=== PATIENT | male | born 1960 | race Caucasian/White ===

== ENCOUNTER → 2019-08-22 | Day surgery (SDC) | payer OTHER ==
--- NOTE | 2019-08-21 13:47 | Pre Op History & Physical ---
DATE OF SURGERY: 08/22/2019 CHIEF COMPLAINT: Lesion in the left mucosal area and the cheek for 1 year. HISTORY OF PRESENT ILLNESS: This 58-year-old male was noted to have a lesion in the left mucosal area for about a year. The patient has no trauma to that diana. He has no swelling in the parotid area. There are no aggravating or relieving symptoms for that problem. The lesion has been persistent and he has been treated with antibiotics, mouthwash with no improvement. The area is quite irritating to the patient. REVIEW OF SYSTEMS: System review showed no recent cardiovascular, respiratory, or GI problem. PAST MEDICAL HISTORY: The patient has a history of hypertension. PAST SURGICAL HISTORY: He has previous surgery to both of his right and left knee and recently sinuplasty. ALLERGIES: HE HAS NO KNOWN ALLERGY TO MEDICATION. MEDICATIONS: He is on: 1. Escitalopram. 2. Tiazac. 3. Simvastatin. 4. Aleve. SOCIAL HISTORY: He smokes cigar and chew tobacco and he drinks about 2-3 times per week. FAMILY HISTORY: Noncontributory. PHYSICAL EXAMINATION: VITAL SIGNS: The patient's vital signs were within normal limits. HEENT: Ear exam showed normal tympanic membranes bilaterally. Nasal exam showed hypertrophy of the inferior turbinates. Oropharynx and oral cavity showed 2+ tonsils bilaterally with Mallampati level 2. Lesion was noted about 1 cm in the left cheek mucosal area anterior to the parotid puncta, which is raised and papular in appearance. NECK: Showed no lymph node or thyroid palpable. CHEST: Showed good air entry bilaterally. CARDIOVASCULAR: Showed S1 and S2. No murmur noted. ASSESSMENT AND PLAN: Mr. 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 The suggested treatment is panendoscopy, excisional biopsy of the lesion with appropriate closure and other necessary procedure. Complication of procedure includes, but not limited to bleeding, infection, wound breakdown, poor cosmetic result, blockage of the parotid duct, parotiditis, dysphagia, odynophagia, persistent recurrence of the problem. Alternatives will be continue observation, excision of lesion in the office setting. The patient has elected to undergo surgical procedure. He has been advised to stop his Aleve at least 7 to 10 days before surgery. MD SOPHIE Bro/ANNA /[id number]
[~2019-08-22] MED LIST: ALEVE220 MG PO; DESFLURANE 240 ML BTL INH ONE; DEXAMETHASONE SOD PHOS INJ 4 MG/ML VIAL ONE; ELAVIL PO; FENTANYL CITRATE/PF 100MCG/2 ML INJ ONE; GLYCOPYRROLATE INJ 1MG/ 5 ML SYR ONE; KETOROLAC TROMETHAMINE 30 MG/ML VIAL ONE; LEXAPRO10 MG PO; LIDOCAINE 1% W/EPINEPHRINE 20 ML VIAL ONE; MIDAZOLAM HCL 2 MG/2 ML VIAL ONE; NEOSTIGMINE 5 MG/5ML SYR ONE; ONDANSETRON HCL INJ 2MG/ML 2ML 2 MG/ML VIAL ONE; PROPOFOL IV EMULSION 10 MG/ML 20 ML VIAL ONE; ROCURONIUM BROMIDE 10 MG/ML 5ML VIAL ONE; SIMVASTATIN20 MG PO; TIAZAC180 MG PO
--- OUTSIDE RECORDS SUMMARY | 2019-08-22 06:59 | XMS REPORT ---
Author Author [facility] Address Unknown Phone Unavailable Care Team Providers Care Adult Literacy Teacher Name Role Phone Ana María Hernandez Unavailable Unavailable RACHAEL, DR POPEYE THOMAS Unavailable Unavailable Problems This patient has no known problems. Allergies, Adverse Reactions, Alerts This patient has no known allergies or adverse reactions. Medications This patient has no known medications. Encounters Start Date/Time End Date/Time Encounter Type Admission Type Attending Clinicians Care Facility Care Department Encounter ID 2018-07-06 15:57:00 2018-08-06 23:59:00 Outpatient [facility] [place] [id number] Results Test Description Test Time Test Comments Text Results Atomic Results Result Comments C Spine Wo Cont 2019-05-03 18:08:00 [place] [id number] [facility] REPORT Name: MYLA LEE Acct Number: [id number] :[id number] Age:58 Sex:M Ord Phys: Ana María Hernandez MANAGER CASINO Unit Number: [id number] [facility] [address]: Status: REG REF RAD Exam Date: 05/03/19 EXAM DESCRIPTION: MRI - C Spine Wo Cont - 05/03/2019 4:29 pm CLINICAL HISTORY: Radiculopathy and neck pain COMPARISON: March 2019 x-ray TECHNIQUE: Magnetic resonance imaging of the cervical spine was obtained with coronal and sagittal reconstruction FINDINGS: Mild spondylosis C2-3 Small disc bulge with annular fissure C3-4. Small osteophytes. Mild narrowing of the neural foramina bilaterally Mild spondylosis C4-5 Small central subligamentous disc herniation C5-6. Osteophytes. Mild to moderate narrowing of the neural foramina bilaterally A small to moderate central subligamentous disc herniation C6-7 C7-T1 unremarkable The spinal cord is normal caliber and signal. No abnormal signal within the bones is noted. IMPRESSION: Spondylosis C3-4 resulting in mild bilateral foraminal stenosis Small central subligamentous disc herniation C5-6. Spondylosis is also present resulting in mild to moderate bilateral foraminal stenosis Small to moderate central subligamentous disc herniation C6-7 Signed By: Marv Jean MD Signed AT: 05/03/19 1808 C Spine Ap/Lat 2019-04-17 17:01:00 [place] [id number] [facility] REPORT Name: MYLA LEE Acct Number: [id number] :[id number] Age:58 Sex:M Ord Phys: Ana María Hernandez MANAGER [employer]INO Unit Number: [id number] [place] [facility] [address]: Status: REG REF RAD Exam Date: 04/17/19 EXAM DESCRIPTION: RAD - C Spine Ap/Lat - 04/17/2019 4:51 pm CLINICAL HISTORY: Neck pain FINDINGS: The alignment of the cervical spine is satisfactory. No fracture or dislocation is seen. Moderate spondylosis C5-6 consisting disc space narrowing and osteophytes. Mild spondylosis involves the remainder of the mid and distal cervical spine Signed By: Marv Jean MD Signed AT: 04/17/19 1705
[2019-08-22 09:20] VITALS: BP 126/81
--- NOTE | 2019-08-22 16:52 | Operative Report ---
DATE OF PROCEDURE: 08/22/2019 SURGEON: Arben Méndez MD PREOPERATIVE DIAGNOSIS: Lesion on the left cheek. POSTOPERATIVE DIAGNOSIS: Lesion on the left cheek. PROCEDURES PERFORMED: Direct laryngoscopy, rigid esophagoscopy, rigid bronchoscopy, excision of left cheek lesion 2 x 1 cm with appropriate closure. ANESTHESIA: Anesthesiology group. INDICATIONS: This 58 years old male has noticed a lesion in the left cheek and mucosal surface just anterior to the parotid puncta for more than 6 months. The lesion has been irritating. The patient cannot recall any trauma to that area. He has been treated with antibiotics with a conservative observation with no improvement of the condition. The lesion was about a centimeter in size. It was decided a panendoscopy, excision of lesion, and other necessary procedure will be beneficial for him. DESCRIPTION OF PROCEDURE: The patient was taken to the operating room, put under general anesthesia, endotracheally intubated. The patient was positioned. Rigid esophagoscopy was performed. Esophagoscope was passed through the cricopharyngeus muscle. The esophagus was examined to about 25 cm from the incisor and no abnormality was noted. The esophagoscope was retrieved. The rigid bronchoscopy was performed. A size #4 bronchoscope with the Carias wire was used. The bronchoscope was passed parallel to the endotracheal tube. Endotracheal tube cuff was deflated. Trachea was examined down to the katerin. No abnormality was noted. Bronchoscope was retrieved. Endotracheal tube cuff was reinflated. The direct laryngoscopy was performed. The Ephraim laryngoscope was used. The oropharynx and oral cavity were examined. The lesion was noted in the left cheek just anterior to the parotid puncta in the mucosal surface about a centimeter in size. No other abnormality was noted. Piriform sinus on either side was examined. No abnormality was noted. The larynx was examined. Both the true and false vocal folds were examined. No abnormality was noted. Excision of the lesion was undertaken. The left cheek was retracted laterally. The area was injected with 1% Xylocaine with 1:100,000 epinephrine for hemostasis. The lesion was excised in the caudocephalic direction. The fascial defect was about 2 x 1 cm. Care was taken during this resection did not disturb the carotid puncta. Closure of the area was undertaken. The anterior mucosal flap was elevated in the subcutaneous plane. This was advanced posteriorly and closed onto the defect using 4-0 Monocryl suture in the interrupted fashion. The patient tolerated the above procedure well with minimal blood loss. He was given 20 mg of Decadron intraoperatively. The patient was able to be transferred to recovery room in stable condition. MD SOPHIE Bro/ANNA /[id number]
== END | disposition home or self-care (01) ==
LOC: OR 06:57
PROVIDERS: ATTEND Otolaryngology Otolaryngology/Facial Plastic Surgery
DX: K13.21 Leukoplakia of oral mucosa, including tongue (principal); R07.0 Pain in throat; I10 Essential (primary) hypertension; F17.290 Nicotine dependence, other tobacco product, uncomplicated; F17.220 Nicotine dependence, chewing tobacco, uncomplicated
CPT/HCPCS: 31525; 31622; 40812; 43191; 88305; 93005; J1100; J1885; J2250; J2405; J2704; J3010; J3490; 88304